=== PATIENT | male | born 1965 | race Caucasian/White ===

== ENCOUNTER 2020-11-04 11:56 | Inpatient (IN) | payer OTHER ==
[2020-11-04 13:29] VITALS: BMI 32.1
[2020-11-04] MEDS ORDERED: ACETAMINOPHEN 325 MG TABLET (FP) PO PRN ×2 (13:51)
[2020-11-04] MEDS ORDERED: MAGNESIUM CITRATE 300 ML BOTTLE PO PRN (13:51)
[2020-11-04] MEDS ORDERED: IBUPROFEN 400 MG TABLET (FP) PO PRN (13:51)
[2020-11-04] MEDS ORDERED: ONDANSETRON *ODT* 4 MG TABLET SL PRN (13:51)
[2020-11-04] MEDS ORDERED: BISMUTH SUBSALICYLATE 262 MG/15 ML BTL PO PRN (13:51)
[2020-11-04] MEDS ORDERED: MENTHOL/PHENOL 1 EACH UD MM PRN (13:51)
[2020-11-04] MEDS ORDERED: MAG HYDROX/AL HYDROX/SIMETH 30 ML UNIT-DOSE CUP PO PRN (13:51)
[2020-11-04] MEDS ORDERED: cloNIDine HCL 0.1 MG TABLET PO PRN (13:51)
[2020-11-04] MEDS ORDERED: METHADONE HCL 10 MG TABLET (FOR DETOX USE ONLY) PO ONE (13:51)
[2020-11-04] MEDS ORDERED: MAGNESIUM HYDROX 2400MG/30ML ORAL SUSPENSION 30 ML CUP PO PRN (13:51)
[2020-11-04] MEDS ORDERED: hydrOXYzine PAMOATE 25 MG CAPSULE (FP) PO SCH (14:00)
[2020-11-04] MEDS ORDERED: LISINOPRIL 10 MG TABLET PO ONE (14:04)
[2020-11-04] MEDS ORDERED: LISINOPRIL 10 MG TABLET ONE (14:04)
[2020-11-04] MEDS: NICOTINE 7 MG/24 HOURS TOPICAL PATCH TD SCH (14:52)
[2020-11-04] MEDS: hydrOXYzine PAMOATE 25 MG CAPSULE (FP) PO PRN ×2 (16:24→22:08)
[2020-11-04 18:19] LABS: POTASSIUM 3.7 mmol/L (3.5-5.1)
[2020-11-04 18:21] LABS: ALBUMIN 3.4 g/dl (3.4-5.0); BLOOD UREA NITROGEN 11.8 mg/dL (7-18); CALCIUM 8.5 mg/dL (8.5-10.1)
[2020-11-04 18:24] LABS: CREATININE 1.3 mg/dL (0.55-1.3)
[2020-11-04 18:26] LABS: BILIRUBIN,TOTAL 0.3 mg/dL (0.2-1); TOT PROT 7.1 g/dl (6.4-8.2)
[2020-11-04 18:28] LABS: HEMATOCRIT 44.9 % (35.4-49); HEMOGLOBIN 15.2 GM/dL (11.7-16.9); MCH 30.8 pg (25.7-33.7); MEAN CELL VOLUME 90.8 fl (80-96); MEAN PLT VOLUME 8.9 fl (7.5-11.1); PLATELET COUNT 204 K/MM3 (134-434); RBC 4.94 M/mm3 (4.00-5.60); RDW 13.6 % (11.9-15.9); WHITE BLOOD COUNT 9.2 K/mm3 (4.0-10.0)
[2020-11-04] MEDS: THIAMINE HCL 100 MG TABLET (FP) PO SCH (22:06)
[2020-11-04] MEDS: MELATONIN 5 MG TABLETS PO SCH (22:06)
[2020-11-05] MEDS: hydrOXYzine PAMOATE 25 MG CAPSULE (FP) PO PRN ×2 (06:15→14:25)
[2020-11-05] MEDS ORDERED: METHADONE HCL 10 MG TABLET (FOR DETOX USE ONLY) ONE (08:42)
[2020-11-05] MEDS ORDERED: METHADONE HCL 5 MG TABLET (FOR DETOX USE ONLY) ONE (08:42)
[2020-11-05] MEDS: PRENATAL VITAMINS W/ FOLIC ACID TABLET (FP) PO SCH (09:32)
[2020-11-05] MEDS: NICOTINE 7 MG/24 HOURS TOPICAL PATCH TD SCH (09:33)
[2020-11-05] MEDS: METHOCARBAMOL 500 MG TABLET PO PRN ×2 (09:34→17:15)
[2020-11-05] MEDS ORDERED: METHADONE (DETOX) 20 MG, METHADONE (DETOX) 5 MG PO ONE (10:00)
[2020-11-05] MEDS: METHYL SALICYLATE/MENTHOL OINT 30 GM TUBE TP SCH ×2 (12:41→22:08)
[2020-11-05] MEDS: traZODone HCL 50 MG TABLET (FP) PO SCH (22:09)
[2020-11-05] MEDS: MELATONIN 5 MG TABLETS PO SCH (22:09)
[2020-11-05] MEDS: THIAMINE HCL 100 MG TABLET (FP) PO SCH (22:09)
[2020-11-06] MEDS: METHYL SALICYLATE/MENTHOL OINT 30 GM TUBE TP SCH ×2 (09:53→22:15)
[2020-11-06] MEDS: SERTRALINE HCL 50 MG TABLET (FP) PO SCH (09:53)
[2020-11-06] MEDS: NICOTINE 7 MG/24 HOURS TOPICAL PATCH TD SCH (09:53)
[2020-11-06] MEDS: PRENATAL VITAMINS W/ FOLIC ACID TABLET (FP) PO SCH (09:53)
[2020-11-06] MEDS ORDERED: METHADONE HCL 10 MG TABLET (FOR DETOX USE ONLY) PO ONE (10:00)
[2020-11-06] MEDS: hydrOXYzine PAMOATE 25 MG CAPSULE (FP) PO PRN ×2 (13:02→17:32)
[2020-11-06] MEDS: METHOCARBAMOL 500 MG TABLET PO PRN ×2 (13:02→18:04)
[2020-11-06] MEDS: NICOTINE POLACRILEX 2 MG GUM BUC PRN ×3 (13:03→22:13)
[2020-11-06] MEDS: THIAMINE HCL 100 MG TABLET (FP) PO SCH (22:12)
[2020-11-06] MEDS: MELATONIN 5 MG TABLETS PO SCH (22:12)
[2020-11-06] MEDS: traZODone HCL 50 MG TABLET (FP) PO SCH (22:12)
[2020-11-07] MEDS: METHOCARBAMOL 500 MG TABLET PO PRN ×2 (08:34→22:08)
[2020-11-07] MEDS: hydrOXYzine PAMOATE 25 MG CAPSULE (FP) PO PRN ×3 (08:34→20:32)
[2020-11-07] MEDS ORDERED: METHADONE HCL 5 MG TABLET (FOR DETOX USE ONLY) ONE (09:06)
[2020-11-07] MEDS ORDERED: METHADONE HCL 10 MG TABLET (FOR DETOX USE ONLY) ONE (09:06)
[2020-11-07] MEDS ORDERED: METHADONE (DETOX) 10 MG, METHADONE (DETOX) 5 MG PO ONE (10:00)
[2020-11-07] MEDS: SERTRALINE HCL 50 MG TABLET (FP) PO SCH (10:37)
[2020-11-07] MEDS: NICOTINE 7 MG/24 HOURS TOPICAL PATCH TD SCH (10:37)
[2020-11-07] MEDS: PRENATAL VITAMINS W/ FOLIC ACID TABLET (FP) PO SCH (10:37)
[2020-11-07] MEDS: NICOTINE POLACRILEX 2 MG GUM BUC PRN ×2 (10:37→14:57)
[2020-11-07] MEDS: METHYL SALICYLATE/MENTHOL OINT 30 GM TUBE TP SCH ×2 (11:24→22:07)
[2020-11-07] MEDS: THIAMINE HCL 100 MG TABLET (FP) PO SCH (22:07)
[2020-11-07] MEDS: MELATONIN 5 MG TABLETS PO SCH (22:07)
[2020-11-07] MEDS: traZODone HCL 50 MG TABLET (FP) PO SCH (22:08)
[2020-11-08] MEDS: SERTRALINE HCL 50 MG TABLET (FP) PO SCH (09:31)
[2020-11-08] MEDS: NICOTINE 7 MG/24 HOURS TOPICAL PATCH TD SCH (09:31)
[2020-11-08] MEDS: METHYL SALICYLATE/MENTHOL OINT 30 GM TUBE TP SCH ×2 (09:31→22:29)
[2020-11-08] MEDS: PRENATAL VITAMINS W/ FOLIC ACID TABLET (FP) PO SCH (09:31)
[2020-11-08] MEDS: METHOCARBAMOL 500 MG TABLET PO PRN (09:32)
[2020-11-08] MEDS ORDERED: METHADONE HCL 10 MG TABLET (FOR DETOX USE ONLY) PO ONE (10:00)
[2020-11-08] MEDS: hydrOXYzine PAMOATE 25 MG CAPSULE (FP) PO PRN ×3 (12:22→22:30)
[2020-11-08] MEDS: MELATONIN 5 MG TABLETS PO SCH (22:29)
[2020-11-08] MEDS: traZODone HCL 50 MG TABLET (FP) PO SCH (22:30)
[2020-11-08] MEDS: THIAMINE HCL 100 MG TABLET (FP) PO SCH (22:30)
[2020-11-09] MEDS: hydrOXYzine PAMOATE 25 MG CAPSULE (FP) PO PRN ×2 (05:17→09:20)
[2020-11-09] MEDS ORDERED: METHADONE HCL 5 MG TABLET (FOR DETOX USE ONLY) PO ONE (06:00)
[2020-11-09] MEDS: PRENATAL VITAMINS W/ FOLIC ACID TABLET (FP) PO SCH (09:19)
[2020-11-09] MEDS: SERTRALINE HCL 50 MG TABLET (FP) PO SCH (09:19)
[2020-11-09] MEDS: METHYL SALICYLATE/MENTHOL OINT 30 GM TUBE TP SCH (09:19)
[2020-11-09] MEDS: NICOTINE POLACRILEX 2 MG GUM BUC PRN (09:20)
[2020-11-09] MEDS: METHOCARBAMOL 500 MG TABLET PO PRN (09:20)
[2020-11-09] MEDS: NICOTINE 7 MG/24 HOURS TOPICAL PATCH TD SCH (09:20)
[2020-11-09 12:50] VITALS: BP 120/67; PULSE 65; TEMP 98.7
== END 2020-11-09 13:37 | disposition other institution (70) | DRG 773 ==
LOC: YASAS 11:56 → Y3N 14:10
PROVIDERS: ADMIT Allergy & Immunology; ATTEND Allergy & Immunology
PROC: HZ2ZZZZ Detoxification Services for Substance Abuse Treatment (ICD-10-PCS; principal; 2020-11-04)
DX: F11.23 Opioid dependence with withdrawal (principal); F14.20 Cocaine dependence, uncomplicated; F17.210 Nicotine dependence, cigarettes, uncomplicated; F19.24 Other psychoactive substance dependence with psychoactive substance-induced mood disorder; F32.9 Major depressive disorder, single episode, unspecified; G47.00 Insomnia, unspecified; I10 Essential (primary) hypertension; M13.89 Other specified arthritis, multiple sites; R26.89 Other abnormalities of gait and mobility; Z62.810 Personal history of physical and sexual abuse in childhood; Z96.651 Presence of right artificial knee joint; Z88.2 Allergy status to sulfonamides; Z59.0 Homelessness; Z91.19 Patient's noncompliance with other medical treatment and regimen
CPT/HCPCS: 36415; 80053; 85027; 86593; 86780; 93005; 93010; C9803; J0735; U0003

== ENCOUNTER 2020-11-09 14:07 | Inpatient (IN) | payer OTHER ==
[~2020-11-09 14:07] MED LIST: LOPERAMIDE HCL 2 MG CAPSULE PO PRN; MAGNESIUM CITRATE 300 ML BOTTLE PO PRN; MAGNESIUM HYDROX 2400MG/30ML ORAL SUSPENSION 30 ML CUP PO PRN; MENTHOL/PHENOL 1 EACH UD MM PRN; P-EPHED 60MG/TRIPROLIDI 2.5MG TABLET PO PRN; guaiFENesin 200 MG/10 ML 10 ML UNIT-DOSE CUPS PO PRN
[2020-11-09] MEDS: METHOCARBAMOL 500 MG TABLET PO PRN (16:54)
[2020-11-09] MEDS: traZODone HCL 50 MG TABLET (FP) PO SCH (21:40)
[2020-11-09] MEDS: MELATONIN 5 MG TABLETS PO SCH (21:40)
[2020-11-09] MEDS: THIAMINE HCL 100 MG TABLET (FP) PO SCH (21:40)
[2020-11-10] MEDS: hydrOXYzine PAMOATE 25 MG CAPSULE (FP) PO PRN ×3 (09:56→21:38)
[2020-11-10] MEDS: METHOCARBAMOL 500 MG TABLET PO PRN ×2 (09:56→17:40)
[2020-11-10] MEDS: NICOTINE POLACRILEX 2 MG GUM BUC PRN ×2 (09:57→17:40)
[2020-11-10] MEDS: NICOTINE 7 MG/24 HOURS TOPICAL PATCH TD SCH (09:57)
[2020-11-10] MEDS: SERTRALINE HCL 50 MG TABLET (FP) PO SCH (09:57)
[2020-11-10] MEDS: PRENATAL VITAMINS W/ FOLIC ACID TABLET (FP) PO SCH (09:57)
[2020-11-10] MEDS: cloNIDine HCL 0.1 MG TABLET PO PRN (10:19)
[2020-11-10] MEDS: traZODone HCL 50 MG TABLET (FP) PO SCH (21:38)
[2020-11-10] MEDS: MELATONIN 5 MG TABLETS PO SCH (21:38)
[2020-11-10] MEDS: THIAMINE HCL 100 MG TABLET (FP) PO SCH (21:38)
[2020-11-11] MEDS: NICOTINE 7 MG/24 HOURS TOPICAL PATCH TD SCH (10:05)
[2020-11-11] MEDS: METHOCARBAMOL 500 MG TABLET PO PRN ×2 (10:05→21:22)
[2020-11-11] MEDS: SERTRALINE HCL 50 MG TABLET (FP) PO SCH (10:05)
[2020-11-11] MEDS: PRENATAL VITAMINS W/ FOLIC ACID TABLET (FP) PO SCH (10:05)
[2020-11-11] MEDS: MAG HYDROX/AL HYDROX/SIMETH 30 ML UNIT-DOSE CUP PO PRN (13:17)
[2020-11-11] MEDS: NICOTINE POLACRILEX 2 MG GUM BUC PRN (20:20)
[2020-11-11] MEDS: THIAMINE HCL 100 MG TABLET (FP) PO SCH (21:22)
[2020-11-11] MEDS: hydrOXYzine PAMOATE 25 MG CAPSULE (FP) PO PRN (21:22)
[2020-11-11] MEDS: MELATONIN 5 MG TABLETS PO SCH (21:22)
[2020-11-11] MEDS: traZODone HCL 50 MG TABLET (FP) PO SCH (21:22)
[2020-11-12] MEDS: PRENATAL VITAMINS W/ FOLIC ACID TABLET (FP) PO SCH (10:04)
[2020-11-12] MEDS: NICOTINE 7 MG/24 HOURS TOPICAL PATCH TD SCH (10:04)
[2020-11-12] MEDS: METHOCARBAMOL 500 MG TABLET PO PRN ×2 (10:05→21:31)
[2020-11-12] MEDS: SERTRALINE HCL 50 MG TABLET (FP) PO SCH (10:05)
[2020-11-12] MEDS: hydrOXYzine PAMOATE 25 MG CAPSULE (FP) PO PRN ×2 (14:04→19:43)
[2020-11-12] MEDS: IBUPROFEN 400 MG TABLET (FP) PO PRN (14:04)
[2020-11-12] MEDS: traZODone HCL 50 MG TABLET (FP) PO SCH (21:31)
[2020-11-12] MEDS: MELATONIN 5 MG TABLETS PO SCH (21:31)
[2020-11-12] MEDS: THIAMINE HCL 100 MG TABLET (FP) PO SCH (21:31)
[2020-11-12] MEDS: cloNIDine HCL 0.1 MG TABLET PO PRN (21:31)
[2020-11-13] MEDS: PRENATAL VITAMINS W/ FOLIC ACID TABLET (FP) PO SCH (09:52)
[2020-11-13] MEDS: SERTRALINE HCL 50 MG TABLET (FP) PO SCH (09:53)
[2020-11-13] MEDS: NICOTINE 7 MG/24 HOURS TOPICAL PATCH TD SCH (09:53)
[2020-11-13] MEDS: METHOCARBAMOL 500 MG TABLET PO PRN ×2 (09:55→21:42)
[2020-11-13] MEDS: hydrOXYzine PAMOATE 25 MG CAPSULE (FP) PO PRN ×3 (09:55→21:41)
[2020-11-13] MEDS: IBUPROFEN 400 MG TABLET (FP) PO PRN (17:26)
[2020-11-13] MEDS: THIAMINE HCL 100 MG TABLET (FP) PO SCH (21:40)
[2020-11-13] MEDS: MELATONIN 5 MG TABLETS PO SCH (21:40)
[2020-11-13] MEDS: traZODone HCL 50 MG TABLET (FP) PO SCH (21:41)
[2020-11-14] MEDS: SERTRALINE HCL 50 MG TABLET (FP) PO SCH (10:00)
[2020-11-14] MEDS: PRENATAL VITAMINS W/ FOLIC ACID TABLET (FP) PO SCH (10:00)
[2020-11-14] MEDS: ACETAMINOPHEN 325 MG TABLET (FP) PO PRN (10:01)
[2020-11-14] MEDS: NICOTINE 7 MG/24 HOURS TOPICAL PATCH TD SCH (10:01)
[2020-11-14] MEDS: METHOCARBAMOL 500 MG TABLET PO PRN ×2 (10:03→21:52)
[2020-11-14] MEDS: NICOTINE POLACRILEX 2 MG GUM BUC PRN (10:04)
[2020-11-14] MEDS: MAG HYDROX/AL HYDROX/SIMETH 30 ML UNIT-DOSE CUP PO PRN (19:35)
[2020-11-14] MEDS: cloNIDine HCL 0.1 MG TABLET PO PRN (19:35)
[2020-11-14] MEDS: MELATONIN 5 MG TABLETS PO SCH (21:52)
[2020-11-14] MEDS: THIAMINE HCL 100 MG TABLET (FP) PO SCH (21:52)
[2020-11-14] MEDS: traZODone HCL 50 MG TABLET (FP) PO SCH (21:52)
[2020-11-14] MEDS: hydrOXYzine PAMOATE 25 MG CAPSULE (FP) PO PRN (21:52)
[2020-11-15] MEDS: cloNIDine HCL 0.1 MG TABLET PO PRN (06:48)
[2020-11-15] MEDS: NICOTINE 7 MG/24 HOURS TOPICAL PATCH TD SCH (10:12)
[2020-11-15] MEDS: SERTRALINE HCL 50 MG TABLET (FP) PO SCH (10:12)
[2020-11-15] MEDS: PRENATAL VITAMINS W/ FOLIC ACID TABLET (FP) PO SCH (10:12)
[2020-11-15] MEDS: IBUPROFEN 400 MG TABLET (FP) PO PRN (10:14)
[2020-11-15] MEDS: hydrOXYzine PAMOATE 25 MG CAPSULE (FP) PO PRN ×2 (10:14→21:40)
[2020-11-15] MEDS: THIAMINE HCL 100 MG TABLET (FP) PO SCH (21:40)
[2020-11-15] MEDS: MELATONIN 5 MG TABLETS PO SCH (21:40)
[2020-11-15] MEDS: traZODone HCL 50 MG TABLET (FP) PO SCH (21:40)
[2020-11-16] MEDS: cloNIDine HCL 0.1 MG TABLET PO PRN ×2 (07:03→21:31)
[2020-11-16] MEDS: NICOTINE 7 MG/24 HOURS TOPICAL PATCH TD SCH (10:00)
[2020-11-16] MEDS: SERTRALINE HCL 50 MG TABLET (FP) PO SCH (10:00)
[2020-11-16] MEDS: PRENATAL VITAMINS W/ FOLIC ACID TABLET (FP) PO SCH (10:00)
[2020-11-16] MEDS: IBUPROFEN 400 MG TABLET (FP) PO PRN (10:01)
[2020-11-16] MEDS: METHOCARBAMOL 500 MG TABLET PO PRN ×2 (10:02→21:31)
[2020-11-16] MEDS: NICOTINE POLACRILEX 2 MG GUM BUC PRN (15:32)
[2020-11-16] MEDS: MELATONIN 5 MG TABLETS PO SCH (21:31)
[2020-11-16] MEDS: hydrOXYzine PAMOATE 25 MG CAPSULE (FP) PO PRN (21:31)
[2020-11-16] MEDS: THIAMINE HCL 100 MG TABLET (FP) PO SCH (21:31)
[2020-11-16] MEDS: traZODone HCL 50 MG TABLET (FP) PO SCH (21:31)
[2020-11-17] MEDS: cloNIDine HCL 0.1 MG TABLET PO PRN (06:26)
[2020-11-17] MEDS: PRENATAL VITAMINS W/ FOLIC ACID TABLET (FP) PO SCH (09:55)
[2020-11-17] MEDS: NICOTINE 7 MG/24 HOURS TOPICAL PATCH TD SCH (09:55)
[2020-11-17] MEDS: SERTRALINE HCL 50 MG TABLET (FP) PO SCH (09:56)
[2020-11-17] MEDS: METHOCARBAMOL 500 MG TABLET PO PRN ×2 (09:57→21:43)
[2020-11-17] MEDS: hydrOXYzine PAMOATE 25 MG CAPSULE (FP) PO PRN (21:43)
[2020-11-17] MEDS: THIAMINE HCL 100 MG TABLET (FP) PO SCH (21:43)
[2020-11-17] MEDS: traZODone HCL 50 MG TABLET (FP) PO SCH (21:43)
[2020-11-17] MEDS: MELATONIN 5 MG TABLETS PO SCH (21:43)
[2020-11-18] MEDS: NICOTINE 7 MG/24 HOURS TOPICAL PATCH TD SCH (10:01)
[2020-11-18] MEDS: PRENATAL VITAMINS W/ FOLIC ACID TABLET (FP) PO SCH (10:01)
[2020-11-18] MEDS: SERTRALINE HCL 50 MG TABLET (FP) PO SCH (10:01)
[2020-11-18] MEDS: NICOTINE POLACRILEX 2 MG GUM BUC PRN (10:02)
[2020-11-18] MEDS: METHOCARBAMOL 500 MG TABLET PO PRN ×2 (14:31→21:18)
[2020-11-18] MEDS: ACETAMINOPHEN 325 MG TABLET (FP) PO PRN (14:31)
[2020-11-18] MEDS: hydrOXYzine PAMOATE 25 MG CAPSULE (FP) PO PRN ×2 (17:30→21:18)
[2020-11-18] MEDS: MELATONIN 5 MG TABLETS PO SCH (21:18)
[2020-11-18] MEDS: traZODone HCL 50 MG TABLET (FP) PO SCH (21:18)
[2020-11-18] MEDS: THIAMINE HCL 100 MG TABLET (FP) PO SCH (21:18)
[2020-11-19] MEDS ORDERED: MASKS NR ONE (06:26)
[2020-11-19] MEDS: SERTRALINE HCL 50 MG TABLET (FP) PO SCH (10:19)
[2020-11-19] MEDS: PRENATAL VITAMINS W/ FOLIC ACID TABLET (FP) PO SCH (10:19)
[2020-11-19] MEDS: NICOTINE 7 MG/24 HOURS TOPICAL PATCH TD SCH (10:19)
[2020-11-19] MEDS: METHOCARBAMOL 500 MG TABLET PO PRN (10:20)
[2020-11-19] MEDS: MELATONIN 5 MG TABLETS PO SCH (21:31)
[2020-11-19] MEDS: THIAMINE HCL 100 MG TABLET (FP) PO SCH (21:31)
[2020-11-19] MEDS: traZODone HCL 50 MG TABLET (FP) PO SCH (21:31)
[2020-11-19] MEDS: hydrOXYzine PAMOATE 25 MG CAPSULE (FP) PO PRN (21:32)
[2020-11-20] MEDS: NICOTINE POLACRILEX 2 MG GUM BUC PRN (09:37)
[2020-11-20] MEDS: SERTRALINE HCL 50 MG TABLET (FP) PO SCH (09:37)
[2020-11-20] MEDS: PRENATAL VITAMINS W/ FOLIC ACID TABLET (FP) PO SCH (09:37)
[2020-11-20] MEDS: NICOTINE 7 MG/24 HOURS TOPICAL PATCH TD SCH (09:37)
[2020-11-20] MEDS: hydrOXYzine PAMOATE 25 MG CAPSULE (FP) PO PRN (19:43)
[2020-11-20] MEDS: ACETAMINOPHEN 325 MG TABLET (FP) PO PRN (21:24)
[2020-11-20] MEDS: traZODone HCL 50 MG TABLET (FP) PO SCH (21:24)
[2020-11-20] MEDS: THIAMINE HCL 100 MG TABLET (FP) PO SCH (21:24)
[2020-11-20] MEDS: MELATONIN 5 MG TABLETS PO SCH (21:24)
[2020-11-20] MEDS: METHOCARBAMOL 500 MG TABLET PO PRN (21:24)
[2020-11-21] MEDS: cloNIDine HCL 0.1 MG TABLET PO PRN (07:09)
[2020-11-21] MEDS: NICOTINE 7 MG/24 HOURS TOPICAL PATCH TD SCH (09:37)
[2020-11-21] MEDS: PRENATAL VITAMINS W/ FOLIC ACID TABLET (FP) PO SCH (09:37)
[2020-11-21] MEDS: SERTRALINE HCL 50 MG TABLET (FP) PO SCH (09:38)
[2020-11-21] MEDS: traZODone HCL 50 MG TABLET (FP) PO SCH (21:22)
[2020-11-21] MEDS: THIAMINE HCL 100 MG TABLET (FP) PO SCH (21:22)
[2020-11-21] MEDS: MELATONIN 5 MG TABLETS PO SCH (21:22)
[2020-11-21] MEDS: METHOCARBAMOL 500 MG TABLET PO PRN (21:23)
[2020-11-21] MEDS: hydrOXYzine PAMOATE 25 MG CAPSULE (FP) PO PRN (21:23)
[2020-11-22] MEDS: METHOCARBAMOL 500 MG TABLET PO PRN ×2 (06:36→21:21)
[2020-11-22] MEDS: cloNIDine HCL 0.1 MG TABLET PO PRN (06:37)
[2020-11-22] MEDS: SERTRALINE HCL 50 MG TABLET (FP) PO SCH (10:06)
[2020-11-22] MEDS: PRENATAL VITAMINS W/ FOLIC ACID TABLET (FP) PO SCH (10:06)
[2020-11-22] MEDS: NICOTINE 7 MG/24 HOURS TOPICAL PATCH TD SCH (10:07)
[2020-11-22] MEDS: hydrOXYzine PAMOATE 25 MG CAPSULE (FP) PO PRN (21:20)
[2020-11-22] MEDS: MELATONIN 5 MG TABLETS PO SCH (21:21)
[2020-11-22] MEDS: THIAMINE HCL 100 MG TABLET (FP) PO SCH (21:21)
[2020-11-22] MEDS: traZODone HCL 50 MG TABLET (FP) PO SCH (21:21)
[2020-11-23] MEDS: cloNIDine HCL 0.1 MG TABLET PO PRN (06:15)
[2020-11-23] MEDS: METHOCARBAMOL 500 MG TABLET PO PRN (06:15)
[2020-11-23 07:04] VITALS: BP 157/47; PULSE 51; TEMP 97.5
== END 2020-11-23 09:40 | disposition home or self-care (01) | DRG 772 ==
LOC: YASAS 14:07 → Y5N 14:09
PROVIDERS: ADMIT Allergy & Immunology; ATTEND Allergy & Immunology
PROC: HZ42ZZZ Group Counseling for Substance Abuse Treatment, Cognitive-Behavioral (ICD-10-PCS; principal; 2020-11-09)
DX: F11.20 Opioid dependence, uncomplicated (principal); F17.210 Nicotine dependence, cigarettes, uncomplicated; F32.9 Major depressive disorder, single episode, unspecified; J45.909 Unspecified asthma, uncomplicated; M19.90 Unspecified osteoarthritis, unspecified site; Z96.651 Presence of right artificial knee joint; Z88.2 Allergy status to sulfonamides; Z59.0 Homelessness
CPT/HCPCS: C9803; J0735; U0003